=== PATIENT | male | born 1945 | race Caucasian/White ===

== ENCOUNTER 2020-12-11 12:57 | Emergency (ER) | payer MEDICARE, SELFPAY ==
--- NOTE | ~2020-12-11 | US_ITS ---
EXAMINATION: US VENOUS ULTRASOUND WITH DOPPLER LOWER EXTREMITY, RIGHT CLINICAL INFORMATION: Pain COMPARISON: None TECHNIQUE: Ultrasound of the deep veins is performed from the hip to the calf with compression sonography and color and pulse Doppler assessment. Spectral analysis with color-flow imaging is performed. FINDINGS: There is normal venous compression and respiratory variation and augmented flow. The visualized common femoral vein, superficial femoral vein, profunda femoral vein, popliteal vein, and the trifurcation region shows no evidence of deep venous thrombosis. There is no significant popliteal fossa cyst. If the patient's symptoms persist, followup ultrasound in 5 days 7 days might be of value to exclude proximal propagation from a non-visualized calf vein. US/US venous duplex LE RT IMPRESSION: No DVT demonstrated in the right lower extremity.
[2020-12-11 13:01] VITALS: BP 162/82; PULSE 79; RESP 18; TEMP 36.6; O2SAT 97; BMI 22.8
--- NOTE | 2020-12-11 13:03 | ED_ITS ---
HPI - Extremity Problem General Chief complaint: Extremity Problem Stated complaint: rule out rt leg blood clot Time Seen by Provider: 12/11/20 12:59 Source: patient Mode of arrival: ambulatory Limitations: no limitations History of Present Illness MD Complaint: extremity pain and extremity swelling Onset (ago): day(s) (3) Pain Consistency: constant Location: right and lower extremity Quality: dull Radiation: none Relieving factors: nothing Exacerbating factors: nothing Associated symptoms: denies other symptoms Context: other (denies any known history) Related Data Allergies Allergy/AdvReac Type Severity Reaction Status Date / Time No Known Allergies Allergy Unverified 12/26/19 15:04 [No Known Allergies*] Review of Systems Review of Systems: Constitutional : No Fever, No Chills ENT/Mouth : No Ear Pain, No Hoarseness, No sore throat Eyes: No Eye Pain, No Swelling, No Redness, No Foreign Body Cardiovascular : No Chest Pain, No SOB, pos right leg swelling Respiratory : No Cough, No Dyspnea Gastrointestinal : No Nausea, No Vomiting, No Diarrhea, No abdominal Pain Genitourinary : No Dysuria, No Hematuria Musculoskeletal : no oint pain, No Myalgias, No Joint Swelling Skin : No Skin lacerations, No rash Neuro : No Weakness, No Numbness, No Loss of Consciousness, No Dizziness, No Headache Psych : No Anxiety/Panic, No Depression Heme/Lymph: no easy bruising, no Lymphadenopathy Endocrine : No Polyuria, No Polydipsia All other systems reviewed and are negative PMFSH Past Medical History Attestation statement: The following information was validated with the patient. Medical History Congestive heart failure (CHF) HLD (hyperlipidemia) HTN (hypertension) Hypothyroidism Social History Social History (Updated 12/11/20 @ 13:19 by Tasia Duran DO) Patient Tobacco Use Status: Former Tobacco user Use of substances other than those prescribed or required for medical reasons: No Advance Directives: No Advance Directives Information Provided: Yes Physical Exam Vital Signs: Vital Signs: Last Vital Signs Temp 97.5 F 12/11/20 13:22 Pulse 66 12/11/20 13:22 Resp 24 H 12/11/20 13:22 BP 141/54 H 12/11/20 13:22 Pulse Ox 97 12/11/20 13:22 Body Mass Index 22.8 Appearance: Alert. Oriented X3. No acute distress. Eyes: Pupils equal, round and reactive to light. ENT: Pharynx normal. Neck: Normal inspection. Neck supple. CVS: Normal heart rate and rhythm. Pulses normal. Respiratory: No respiratory distress. Breath sounds normal. Abdomen: Soft and non-tender. Skin: Skin warm and dry. Normal skin color. Normal skin turgor. Extremities: RLE pitting edema 1+ to mid calf, no warmth/erythema, bounding DP pulse. Mild calf ttp Neuro: Oriented X 3. No motor deficit. No sensory deficit. Course Course Course Narrative: negative US stable for DC MDM - Extremity (Nontraumatic) MDM Narrative Medical decision making narrative: 75 yo male with hx of CHF, HTN, HLD here with 3 days of atraumatic R leg pain - no signs of infection, NV intact, denies known risk factors for DVT. Denies CP/SOB no hypoxia/tachycardia - labs and DVT study ordered. He denies issues with bleeding in the past or GIB symptoms currently. Lab Data Result diagrams: 12/11/20 13:19 12/11/20 13:19 Labs: Lab Results 12/11/20 12/11/20 12/11/20 Range/Units 13:19 13:19 13:19 WBC 8.0 (4.8-10.8) X10*3/uL RBC 4.69 (4.60-5.80) X10*6/uL Hgb 15.0 (14.0-18.0) g/dl Hct 45.6 (42-52) % MCV 97.2 (80-98) fL MCH 32.0 (27.0-33.0) pg MCHC 32.9 (31.0-36.0) g/dl RDW 14.3 (11.0-16.0) % Plt Count 169 (160-400) X10*3/uL MPV 9.9 (9.4-12.4) fL Immature Gran % (Auto) 0.5 H (0.0-0.4) % Neut % (Auto) 72.1 (45-73) % Lymph % (Auto) 12.9 L (20-40) % [place] % (Auto) 12.9 H (2-11) % Eos % (Auto) 1.5 (0-4) % Baso % (Auto) 0.1 (0-2) % Lymph # (Auto) 1.0 L (1.2-4.9) X10*3/uL [place] # (Auto) 1.0 (0.1-1.2) X10*3/uL Eos # (Auto) 0.1 (0.0-0.4) X10*3/uL Baso # (Auto) 0.0 (0.0-0.2) X10*3/uL Abs Immat Gran (auto) 0.04 H (0.00-0.03) X10*3/uL Absolute Neuts (auto) 5.8 (2.0-8.3) X10*3/uL Absolute Nucleated RBC 0.000 (0.0-0.012) X10*3/uL Nucleated RBC % (auto) 0.0 (0.0-0.2) /100WBC PT 13.0 (9.9-13.0) SEC INR 1.1 (0.9-1.1) APTT 35.6 (24.1-38.0) SEC Sodium 140 (135-145) mmol/L Potassium 4.3 (3.3-5.1) mmol/L Chloride 107 (96-108) mmol/L Carbon Dioxide 24 (22-29) mmol/L Anion Gap 13 (12-20) BUN 20 H (9-16) mg/dL Creatinine 1.37 (0.5-1.4) mg/dL Estim Creat Clear Calc 40.7 Estimated GFR 50 Random Glucose 84 (60-115) mg/dL Calcium 9.9 (8.4-10.2) mg/dL Discharge Plan Discharge Clinical Impression: Lower extremity edema Patient Disposition: Home, Self-Care Instructions: Leg Edema (ED) Additional Instructions: return to ED for any worsening symptoms or concerns wear tight compression stockings for the next 3 days repeat ultrasound in 3 days Referrals: Physician,Unknown [Primary Care Provider] - 3 days Interventions: ED Discharge Assessment Last Done: 12/11/20 15:11 Discharge Date/Time: 12/11/20 15:11
[2020-12-11 13:22] VITALS: BP 141/54; PULSE 66; RESP 24; TEMP 36.4; O2SAT 97
[2020-12-11 13:27] LABS: MANUAL DIFF FLAG NO
[2020-12-11 13:29] LABS: Basophils Percent Auto 0.1 % (0-2); Eosinophils Absolute Auto 0.1 X10*3/uL (0.0-0.4); Eosinophils Percent Auto 1.5 % (0-4); Hematocrit 45.6 % (42-52); Imm Gran Abs Auto 0.04 X10*3/uL (0.00-0.03); Imm Gran Pct Auto 0.5 % (0.0-0.4); Lymphocytes Percent Auto 12.9 % (20-40); Mean Corpuscular HGB Conc 32.9 g/dl (31.0-36.0); Mean Corpuscular Volume 97.2 fL (80-98); Mean Platelet Volume 9.9 fL (9.4-12.4); Monocytes Percent Auto 12.9 % (2-11); Neutrophils Absolute Auto 5.8 X10*3/uL (2.0-8.3); Neutrophils Percent Auto 72.1 % (45-73); Platelet Count 169 X10*3/uL (160-400); Red Blood Count 4.69 X10*6/uL (4.60-5.80); Red Cell Distribution Width 14.3 % (11.0-16.0)
[2020-12-11 13:36] LABS: INTERNATIONAL NORM RATIO 1.1 (0.9-1.1)
[2020-12-11 13:39] LABS: Partial Thromboplastin Time 35.6 SEC (24.1-38.0)
[2020-12-11 13:41] LABS: Anion Gap 13 (12-20); Blood Urea Nitrogen 20 mg/dL (9-16); Calcium 9.9 mg/dL (8.4-10.2); Carbon Dioxide 24 mmol/L (22-29); Chloride 107 mmol/L (96-108); Creatinine Clr Calc Pharmacy 40.7; Estimated Glomerular Filt Rate 50; Glucose Random 84 mg/dL (60-115); Potassium 4.3 mmol/L (3.3-5.1); Sodium 140 mmol/L (135-145)
== END 2020-12-11 15:11 | disposition home or self-care (01) ==
PROVIDERS: Emergency Provider Emergency Medicine
DX: R60.0 Localized edema (principal); M79.661 Pain in right lower leg; I11.0 Hypertensive heart disease with heart failure; I50.9 Heart failure, unspecified; E78.5 Hyperlipidemia, unspecified
CPT/HCPCS: 36415; 80048; 85025; 85610; 85730; 93971; 99284

== ENCOUNTER 2023-06-23 15:54 | Emergency (ER) | payer MEDICARE, SELFPAY ==
--- NOTE | ~2023-06-23 | CT_ITS ---
CT HEAD WITHOUT IV CONTRAST CT MAXILLOFACIAL WITHOUT IV CONTRAST INDICATION: Fall with head injury. COMPARISON: None available. TECHNIQUE: Multidetector CT acquisitions of the head, maxillofacial region, and cervical spine were obtained without IV contrast. Multiplanar reformats were acquired and utilized for image interpretation. This CT examination was performed using dose optimization techniques as appropriate, variously including the following: *Automated exposure control *Adjustment of mA and/or kV according to patient size (this includes techniques or standardized protocols for targeted exams where dose is matched to indication/reason for exam; i.e. extremities or head) *Use of iterative reconstruction technique FINDINGS: HEAD: There is no intracranial hemorrhage, hydrocephalus, extra-axial surface collection, midline shift, or other herniation pattern. Chronic encephalomalacia and gliosis within the inferior left frontal lobe associated with ex vacuo dilatation of the left frontal horn. [place] to white matter differentiation is diffusely maintained without evidence of an evolved acute territorial infarct. The basilar cisterns are preserved. Large anterior left scalp/periorbital hematoma. MAXILLOFACIAL: Depressed fracture at the tip of the nasal bone of indeterminate age that can be correlated for tenderness overlying this area. No additional maxillofacial fractures. Mild mucosal thickening throughout the paranasal sinuses. The mastoid air cells and middle ear cavities are clear. CT/CT head/brain wo IV con IMPRESSION: - No acute intracranial abnormality. 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 - Large anterior left scalp/periorbital hematoma. - Depressed fracture at the tip of the nasal bone of indeterminate age that can be correlated for tenderness overlying this area. No additional maxillofacial fractures.
--- NOTE | ~2023-06-23 | CT_ITS ---
CT HEAD WITHOUT IV CONTRAST CT MAXILLOFACIAL WITHOUT IV CONTRAST INDICATION: Fall with head injury. COMPARISON: None available. TECHNIQUE: Multidetector CT acquisitions of the head, maxillofacial region, and cervical spine were obtained without IV contrast. Multiplanar reformats were acquired and utilized for image interpretation. This CT examination was performed using dose optimization techniques as appropriate, variously including the following: *Automated exposure control *Adjustment of mA and/or kV according to patient size (this includes techniques or standardized protocols for targeted exams where dose is matched to indication/reason for exam; i.e. extremities or head) *Use of iterative reconstruction technique FINDINGS: HEAD: There is no intracranial hemorrhage, hydrocephalus, extra-axial surface collection, midline shift, or other herniation pattern. Chronic encephalomalacia and gliosis within the inferior left frontal lobe associated with ex vacuo dilatation of the left frontal horn. [place] to white matter differentiation is diffusely maintained without evidence of an evolved acute territorial infarct. The basilar cisterns are preserved. Large anterior left scalp/periorbital hematoma. MAXILLOFACIAL: Depressed fracture at the tip of the nasal bone of indeterminate age that can be correlated for tenderness overlying this area. No additional maxillofacial fractures. Mild mucosal thickening throughout the paranasal sinuses. The mastoid air cells and middle ear cavities are clear. CT/CT facial bones wo IV con IMPRESSION: - No acute intracranial abnormality. 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 - Large anterior left scalp/periorbital hematoma. - Depressed fracture at the tip of the nasal bone of indeterminate age that can be correlated for tenderness overlying this area. No additional maxillofacial fractures.
[2023-06-23 16:01] VITALS: BP 154/73; PULSE 86; RESP 20; TEMP 36.6; O2SAT 94; BMI 21.4
--- NOTE | 2023-06-23 16:02 | ED.FALL ---
HPI - Fall General Chief Complaint: Fall Stated Complaint: Fall/Bruised L eye Time Seen by Provider: 06/23/23 21:42 Source: patient Mode of arrival: ambulatory Limitations: no limitations History of Present Illness HPI Narrative: 78-year-old male with a history of congestive heart failure, hypothyroidism, hypertension, hyperlipidemia presents the ER after a fall. Patient reports he was in his driveway and for an unknown reason he fell hitting his head. No loss of consciousness. No AC therapy use. Patient denies any pre fall symptoms of dizziness, chest pain, shortness of breath or headache. Has no current complaints. His tetanus shot is up-to-date. Related Data Allergies Allergy/AdvReac Type Severity Reaction Status Date / Time No Known Allergies Allergy Verified 06/23/23 16:07 [No Known Allergies*] Review of Systems Review of Systems: Yes all other systems are reviewed and are negative Constitutional: Constitutional: Reports no additional constitutional complaints, Denies body ache(s), Denies chills, Denies fever(s), Denies headache(s) and Denies weakness Eyes: Eyes: Reports no additional eye complaints and Denies change in vision ENT: Reports system reviewed and no additional complaints, except as documented, Denies dizziness, Denies headache(s), Denies nasal congestion, Denies nasal discharge and Denies neck pain Cardiovascular: Cardiovascular: Reports no additional cardiovascular complaints, Denies chest pain, Denies leg edema and Denies dyspnea Respiratory: Respiratory: Reports no additional respiratory complaints, Denies cough and Denies dyspnea Gastrointestinal: Gastrointestinal: Reports no additional gastrointestinal complaints, Denies abdominal pain, Denies diarrhea, Denies nausea and Denies vomiting Genitourinary: Genitourinary: Denies urinary incontinence Musculoskeletal: Musculoskeletal: Reports no additional musculoskeletal complaints, Denies back pain, Denies arthralgias, Denies joint swelling, Denies neck pain, Denies numbness and Denies tingling Integumentary/Breasts: Skin/Breast: Reports system reviewed and no additional complaints, except as docu and Denies rash Neurologic: Reports system reviewed and no additional complaints, except as documented, Denies Abnormal speech present, Denies dizziness, Denies headache(s), Denies numbness, Denies tingling and Denies weakness PMFSH Past Medical History Attestation statement: The following information was validated with the patient. Source: old records reviewed and nursing notes reviewed Medical History HLD (hyperlipidemia) HTN (hypertension) Hypothyroidism Congestive heart failure (CHF) Social History Social History Patient Tobacco Use Status: Former Tobacco user Advance Directives: No Advance Directives Information Provided: No Physical Exam Vital Signs: Vital Signs: Last Vital Signs Temp 98.3 F 06/23/23 23:10 Pulse 108 H 06/23/23 23:10 Resp 17 06/23/23 23:10 BP 110/70 06/23/23 23:10 Pulse Ox 96 06/23/23 23:10 O2 Del Method Room Air 06/23/23 23:10 BMI result Body Mass Index 21.4 Const: General: cooperative, healthy appearing, comfortable and no acute distress Orientation/consciousness: patient oriented x3 Limitations: no limitations HEENT: Other: No hemotympanum Head: Yes normal to inspection, No Novoa's sign and No raccoon eyes Ears: hearing grossly normal bilaterally and TM's normal bilaterally General nose exam: Normal external nose present Face and sinus: Yes normal facial exam Face images: 1. 1cm lac 2. 1cm lac Mouth: Normal oral and palatal mucosa present Throat: Yes posterior oropharynx normal Eyes: General: appearance normal, both eyes and all related structures Pupils: Equal, round and reactive pupils present Neck: Other: No cervical midline tenderness, step-offs or deformity Neck: Yes normal visual inspection, Yes full ROM, Yes no lymphadenopathy and Yes no meningeal signs Chest: Chest palpation & inspection: normal inspection of the chest Resp: Effort & Inspection: normal respiratory effort Auscultation: clear to auscultation bilaterally Cardio: Rate: regular rate Rhythm: regular rhythm Peripheral pulses: Peripheral pulses 2+ throughout GI: Inspection: Yes normal to inspection Palpation (GI): Soft to palpation and nontender Auscultation: normal bowel sounds Back/Spine/Pelvis: Thoracic/Lumbar Spine: thoracic and lumbar spine normal to inspection Skin: General skin exam: no rashes or lesions noted Neuro: General: patient oriented x3, moves all extremities, no meningeal signs, no focal motor deficits and normal sensation to monofilament Cranial nerves: Yes CN's II-XII intact bilaterally, Yes Equal, round and reactive pupils present, Yes Bilaterally intact EOM present, Yes Nystagmus not present, Yes Normal facial strength present and Yes Midline tongue present Cognition (Neuro): normal cognition Speech: No Abnormal speech present Gait exam (Neuro): Normal gait present Motor exam (neuro): 5/5 motor strength present throughout Sensory Exam: Normal double simultaneous stimulation for sensation Extrem: General: Yes normal to inspection Course Course Course Narrative: This is an RME: Additional HPI, ROS, PE not included below will be deferred to primary provider. Patient is an 78-year-old male who presents emergency department for evaluation after a fall with head injury sustaining a bruise and laceration to the left medial brow. Etiology of fall is unknown he states he was walking in the driveway when suddenly he felt. Denies any LOC. He was able to get himself up. No Neurological deficits, NIH 0. No anticoagulants Plan: Labs, EKG, CT Reevaluation(s) Reevaluation #1: Labs show mild EVAN. Orthostatics are negative. EKG is nonischemic. Trope is flat. Patient received 1 L of fluid and will reassess Reevaluation #2: Patient refused receiving IV fluids and repeat CMP as well as urine testing and wanted to leave against medical advice. He is alert and oriented x3. Recommend he follow-up with his primary care next week for repeat lab work Medications Administered Discontinued Medications Generic Name Dose Route Start Last Admin Trade Name Freq PRN Reason Stop Dose Admin Sodium Chloride 1,000 mls @ 999 mls/hr 06/23/23 21:48 06/23/23 23:11 Ns IV 06/23/23 22:48 Infused .Q1H1M STA Infusion Procedures Laceration Laceration 1: Site: face Side (If applicable): left Size (cm): 2 Description: linear Depth: simple, single layer Local Anesthetic: lidocaine 1% Amount of anesthesia used (mL): 1 Pre-repair: wound explored and irrigated extensively Skin layer closed with: other (prolene) Size (cm): 6-0 Number of sutures: 3 Technique: simple, interrupted Medical Decision Making Medical Decision Making [facility] Narrative: 78-year-old male with a history of congestive heart failure, hypothyroidism, hypertension, hyperlipidemia presents the ER after a fall. Patient reports he was in his driveway and for an unknown reason he fell hitting his head. No loss of consciousness. No AC therapy use. Patient denies any pre fall symptoms of dizziness, chest pain, shortness of breath or headache. Has no current complaints. His tetanus shot is up-to-date. Normal neuro exam with no focal deficits. See procedure note for wound Due to age will need CT head and cervical spine Due to unclear reason for fall will check labs, EKG, orthostatics, UA Differential Diagnosis Differential Diagnoses: The differential diagnosis associated with the presentation includes Orthostatic hypotension, electrolyte abnormality, anemia, ACS Low suspicion for PE, intracranial hemorrhage, basilar skull fracture Admission/Observation Consideration of admission/observation: Escalation of care including admission/observation considered Lab Data MDM Lab Attestation statement: I reviewed the patient's lab results. 06/23/23 16:31 06/23/23 16:31 Labs: Lab Results 06/23/23 Range/Units 16:31 WBC 7.8 (4.8-10.8) X10*3/uL RBC 3.81 L (4.60-5.80) X10*6/uL Hgb 11.7 L (14.0-18.0) g/dl Hct 36.4 L (42.0-52.0) % MCV 95.5 (80.0-98.0) fL MCH 30.7 (27.0-33.0) pg MCHC 32.1 (31.0-36.0) g/dl RDW 16.1 H (11.0-16.0) % Plt Count 153 L (160-400) X10*3/uL MPV 10.5 (9.4-12.4) fL Immature Gran % (Auto) 0.5 H (0.0-0.4) % Neut % (Auto) 75.1 H (45-73) % Lymph % (Auto) 12.4 L (20-40) % [place] % (Auto) 10.2 (2-11) % Eos % (Auto) 1.5 (0-4) % Baso % (Auto) 0.3 (0-2) % Lymph # (Auto) 1.0 L (1.2-4.9) X10*3/uL [place] # (Auto) 0.8 (0.1-1.2) X10*3/uL Eos # (Auto) 0.1 (0.0-0.4) X10*3/uL Baso # (Auto) 0.0 (0.0-0.2) X10*3/uL Abs Immat Gran (auto) 0.04 H (0.00-0.03) X10*3/uL Absolute Neuts (auto) 5.8 (2.0-8.3) x10*3/uL Absolute Nucleated RBC 0.000 (0.0-0.012) X10*3/uL Nucleated RBC % (auto) 0.0 (0.0-0.2) /100WBC PT 13.0 (11.1-13.3) SEC INR 1.1 (0.9-1.1) Sodium 141 (135-145) mmol/L Potassium 4.7 (3.3-5.1) mmol/L Chloride 108 (96-108) mmol/L Carbon Dioxide 23 (22-29) mmol/L Anion Gap 15 (12-20) BUN 34 H (9-16) mg/dL Creatinine 1.73 H (0.5-1.4) mg/dL Estim Creat Clear Calc 28.9 Estimated GFR 38 Random Glucose 106 (60-115) mg/dL Calcium 10.0 (8.4-10.2) mg/dL Total Bilirubin 0.6 (0.0-1.0) mg/dL AST 14 (5-37) U/L ALT 5 (0-40) U/L Alkaline Phosphatase 86 (39-117) U/L Total Protein 7.3 (6.5-8.0) g/dL Albumin 4.3 (3.5-5.0) g/dL Independent Interpretation I performed an independent interpretation of an: EKG and CT Scan Interpretation: I independently reviewed the CT scan agree with the radiology report I independently reviewed the EKG which shows V paced rhythm Radiology Impression Discussion of test interpretation with radiology: I have reviewed the radiologist's reading. Radiologist Impression: [address] [address] [address] Scan Report Signed Patient: Jesus Alberto Arteaga MR#: [id number] : 1945 Acct:[id number] Age/Sex: 78 / M ADM Date: 06/23/23 Loc: .ED Attending Dr: Ordering Physician: Katharina Ascencio CNP Date of Service: 06/23/23 Procedure(s): CT head/brain wo IV con Accession Number(s): [id number] cc: Katharina Ascencio CNP; Physician,Unknown ~ CT HEAD WITHOUT IV CONTRAST CT MAXILLOFACIAL WITHOUT IV CONTRAST INDICATION: Fall with head injury. COMPARISON: None available. TECHNIQUE: Multidetector CT acquisitions of the head, maxillofacial region, and cervical spine were obtained without IV contrast. Multiplanar reformats were acquired and utilized for image interpretation. This CT examination was performed using dose optimization techniques as appropriate, variously including the following: *Automated exposure control *Adjustment of mA and/or kV according to patient size (this includes techniques or standardized protocols for targeted exams where dose is matched to indication/reason for exam; i.e. extremities or head) *Use of iterative reconstruction technique FINDINGS: HEAD: There is no intracranial hemorrhage, hydrocephalus, extra-axial surface collection, midline shift, or other herniation pattern. Chronic encephalomalacia and gliosis within the inferior left frontal lobe associated with ex vacuo dilatation of the left frontal horn. [place] to white matter differentiation is diffusely maintained without evidence of an evolved acute territorial infarct. The basilar cisterns are preserved. Large anterior left scalp/periorbital hematoma. MAXILLOFACIAL: Depressed fracture at the tip of the nasal bone of indeterminate age that can be correlated for tenderness overlying this area. No additional maxillofacial fractures. Mild mucosal thickening throughout the paranasal sinuses. The mastoid air cells and middle ear cavities are clear. CT/CT head/brain wo IV con IMPRESSION: - No acute intracranial abnormality. 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 - Large anterior left scalp/periorbital hematoma. - Depressed fracture at the tip of the nasal bone of indeterminate age that can be correlated for tenderness overlying this area. No additional maxillofacial fractures. Discharge Plan Discharge Clinical Impression: Facial laceration, EVAN (acute kidney injury) Patient Disposition: Left Against Medical Advice Instructions: Laceration (ED), Acute Kidney Injury (DC), Against Medical Advice (ED) Additional Instructions: Your sutures removed in 5-7 days Your labs show that your kidney function is elevated. We wanted to give you fluid and recheck your kidney function to make sure was improving but you declined this. Please follow-up with primary care doctor next week to have your labs rechecked and make sure kidney function is okay. Your welcome to return any time Referrals: Physician,Ozzy J [Primary Care Provider] - 1 week Stand Alone Forms: Against Medical Advice Interventions: ED Discharge Assessment Last Done: 06/23/23 23:10
--- NOTE | 2023-06-23 16:06 | ECG_ITS ---
Test Reason : FALL Blood Pressure : / mmHG Vent. Rate : 081 BPM Atrial Rate : 070 BPM P-R Int : 000 ms QRS Dur : 132 ms QT Int : 416 ms P-R-T Axes : 000 205 008 degrees QTc Int : 483 ms Ventricular-paced rhythm with Premature ventricular complexes Abnormal ECG When compared with ECG of 27-AUG-2015 09:52, Electronic ventricular pacemaker has replaced Atrial fibrillation Referred By: Katharina Ascencio Electronically Signed By:RAE ACEVEDO MD
[2023-06-23 16:36] LABS: MANUAL DIFF FLAG NO
[2023-06-23 16:37] LABS: Basophils Percent Auto 0.3 % (0-2); Eosinophils Absolute Auto 0.1 X10*3/uL (0.0-0.4); Eosinophils Percent Auto 1.5 % (0-4); Hematocrit 36.4 % (42.0-52.0); Hemoglobin 11.7 g/dl (14.0-18.0); Imm Gran Abs Auto 0.04 X10*3/uL (0.00-0.03); Imm Gran Pct Auto 0.5 % (0.0-0.4); Lymphocytes Percent Auto 12.4 % (20-40); Mean Corpuscular HGB Conc 32.1 g/dl (31.0-36.0); Mean Corpuscular Hemoglobin 30.7 pg (27.0-33.0); Mean Corpuscular Volume 95.5 fL (80.0-98.0); Mean Platelet Volume 10.5 fL (9.4-12.4); Monocytes Absolute Auto 0.8 X10*3/uL (0.1-1.2); Monocytes Percent Auto 10.2 % (2-11); Neutrophils Absolute Auto 5.8 x10*3/uL (2.0-8.3); Neutrophils Percent Auto 75.1 % (45-73); Platelet Count 153 X10*3/uL (160-400); Red Blood Count 3.81 X10*6/uL (4.60-5.80); Red Cell Distribution Width 16.1 % (11.0-16.0); White Blood Count 7.8 X10*3/uL (4.8-10.8)
[2023-06-23 16:50] LABS: INTERNATIONAL NORM RATIO 1.1 (0.9-1.1)
[2023-06-23 16:53] LABS: Alanine Aminotransferase 5 U/L (0-40); Albumin Level 4.3 g/dL (3.5-5.0); Alkaline Phosphatase 86 U/L (39-117); Anion Gap 15 (12-20); Aspartate Amino Transferase 14 U/L (5-37); Bilirubin Total 0.6 mg/dL (0.0-1.0); Blood Urea Nitrogen 34 mg/dL (9-16); Carbon Dioxide 23 mmol/L (22-29); Chloride 108 mmol/L (96-108); Creatinine Clr Calc Pharmacy 28.9; Estimated Glomerular Filt Rate 38; Glucose Random 106 mg/dL (60-115); Potassium 4.7 mmol/L (3.3-5.1); Sodium 141 mmol/L (135-145); Total Protein 7.3 g/dL (6.5-8.0)
[2023-06-23] MEDS: 0.9 % Sodium Chloride 1,000 ML 999 ML IV (22:00)
[2023-06-23 22:14] VITALS: BP 149/72; BP 150/71; BP 152/64; PULSE 60; PULSE 63
[2023-06-23 22:43] VITALS: BP 110/70; PULSE 108; RESP 17; TEMP 36.8; O2SAT 96
--- NOTE | 2023-06-23 22:43 | PC.NURSE ---
iv inserted and ivf hung by Tawanna THOMAS.
[2023-06-23 23:10] VITALS: BP 110/70; PULSE 108; RESP 17; TEMP 36.8; O2SAT 96
== END 2023-06-23 23:10 | disposition left against medical advice (07) ==
PROVIDERS: Nurse Practitioner Family; Emergency Provider Internal Medicine
DX: S01.81XA Laceration without foreign body of other part of head, initial encounter (principal); N17.9 Acute kidney failure, unspecified; I11.0 Hypertensive heart disease with heart failure; I50.9 Heart failure, unspecified; W19.XXXA Unspecified fall, initial encounter; Y93.9 Activity, unspecified; Y92.008 Other place in unspecified non-institutional (private) residence as the place of occurrence of the external cause; Y99.9 Unspecified external cause status
CPT/HCPCS: 12011; 36415; 70450; 70486; 80053; 85025; 85610; 93005; 96360; 99284

== ENCOUNTER → 2023-06-23 16:06 | Outpatient (BNV) | payer MEDICARE, SELFPAY | PROVIDERS: Emergency Provider Internal Medicine; Visit Provider Internal Medicine Cardiovascular Disease | DX: R94.31 Abnormal electrocardiogram [ECG] [EKG] (principal) | CPT/HCPCS: 93010 ==